=== PATIENT | female | born 1990 | race African-American/Black ===

== ENCOUNTER 2017-03-05 12:59 | Emergency (ER) | payer SELFPAY ==
--- NOTE | ~2017-03-05 | CT71 ---
[facility] A Service [facility] RADIOLOGY TEXT RESULTS PATIENT: MARY LA LOCATION: SED : [birth year] UNIT #: [id number] AGE: [address]: Angelo Garcia MD SEX: F ORDER DR: [id number] [place] [id number] MR#: [id number] Acc #: [id number] NAME: MARY LA : 1990 SEX: F STUDY DATE/TIME: 03/05/2017 13:48 UNIT: SED ROOM: STUDY DESCRIPTION: CT Head Wo Contrast Attending Physician: Angelo Garcia M.D. Ordering Physician: Angelo Garcia M.D. MEDICAL IMAGING REPORT This report is preliminary unless electronic signature is present. EXAM CT head without contrast INDICATIONS Headache. Vomiting. Symptoms since this morning. TECHNIQUE Axial noncontrast images were obtained from the skull base to the vertex. This CT exam was performed with one or more of the following radiation dose reduction techniques: automatic exposure control, adjustment of mA and/or kV according to patient size, and iterative reconstruction. FINDINGS Ventricular size and configuration are normal. There is no evidence of acute infarct or hemorrhage. There are no extraaxial fluid collections. No mass lesion or mass effect is seen. There are no skull fractures. IMPRESSION Normal noncontrast head CT. Dictated by... Angelo Gomez M.D. THIS IS AN ELECTRONICALLY VERIFIED REPORT Angelo Gomez M.D. at 03/05/2017 9:55 PM FEL/pcl TD: 03/05/2017 21:44 JOB #: [id number] MEDICAL IMAGING REPORT [facility] A [facility] RADIOLOGY TEXT RESULTS PATIENT: MARY LA LOCATION: SED : [birth year] UNIT #: [id number] AGE: [address]: Angelo Garcia MD SEX: F ORDER DR: Page 1 of 1
[~2017-03-05 12:59] MED LIST: LORTAB ELIXIR15 ML PO
[2017-03-05] MEDS ORDERED: NO MEDICATIONS (13:01)
[2017-03-05 13:49] LABS: AMPHETAMINE NEG (NEG); BARBITURATES NEG (NEG); BENZODIAZEPINES NEG (NEG); COCAINE NEG (NEG); MARIJUANA POS (NEG); OPIATES NEG (NEG); TRICYCLIC ANTIDEPRESSANTS NEG (NEG); U METHADONE NEG (NEG)
== END 2017-03-05 15:15 | disposition home or self-care (01) ==
LOC: SED 12:59
PROVIDERS: Emergency Medicine
DX: J01.00 Acute maxillary sinusitis, unspecified (principal); J01.20 Acute ethmoidal sinusitis, unspecified; G44.209 Tension-type headache, unspecified, not intractable; E66.9 Obesity, unspecified; Z87.891 Personal history of nicotine dependence
CPT/HCPCS: 70450; 80307; 84703; 99284

== ENCOUNTER 2017-03-18 20:26 | Emergency (ER) | payer SELFPAY ==
[~2017-03-18] VITALS: Ht 162.6 cm; Wt 96.2 kg
[~2017-03-18 20:26] MED LIST changes: +NO MEDICATIONS
== END 2017-03-18 21:33 | disposition home or self-care (01) ==
LOC: SED 20:26
DX: J03.90 Acute tonsillitis, unspecified (principal)
CPT/HCPCS: 87651; 99284